=== PATIENT | male | born 1935 | race Caucasian/White ===

== ENCOUNTER 2017-07-09 19:02 | Emergency (ER) | payer MEDICARE ==
[~2017-07-09] VITALS: Ht 170.2 cm; Wt 81.8 kg
[2017-07-09 19:08] VITALS: TEMP 98.7
[2017-07-09 19:36] LABS: BASO % 0.2 % (0.0-2.0); EOS % 0.1 % (0-4.0); GRAN # 8.6 (1.4-6.5); GRAN % 86.5 % (42.2-75.2); HEMATOCRIT 46.7 % (42.0-52.0); HEMOGLOBIN 15.3 g/dl (13.5-18.0); LYMPH # 0.6 (1.2-3.4); LYMPH % 5.5 % (20.0-51.0); MEAN CELL VOLUME 86 fl (80.0-100.0); MEAN CORPUSCULAR HEMOGLOBIN 28 pg (27.0-31.0); MEAN CORPUSCULAR HGB CONC 33 g/dl (33.0-37.0); MEAN PLATELET VOLUME 10.5 fl (7.4-10.4); MONO # 0.7 (0.1-0.6); MONO % 7.4 % (1.7-9.3); PLATELET COUNT 203 K/mm3 (130-400); RED BLOOD COUNT 5.44 M/mm3 (4.20-5.60); REDCELL DISTRIBUTION WIDTH-CV 13.6 % (11.5-14.5)
[2017-07-09 19:43] LABS: PROTHROMBIN TIME 11.6 SECONDS (9.7-12.8)
[2017-07-09 20:01] LABS: ALANINE AMINOTRANSFERASE 34 U/L (21-72); ALBUMIN 3.9 gm/dL (3.5-5.0); ALKALINE PHOSPHATASE 86 U/L (50-136); ANION GAP 16 mmol/L (7-16); AST,SGOT 44 U/L (15-37); BILIRUBIN,TOTAL 1.1 mg/dL (0.0-1.0); BLOOD UREA NITROGEN 26 mg/dL (9-20); CALCIUM 8.5 mg/dL (8.4-10.2); CARBON DIOXIDE 20 mmol/L (22-30); CHLORIDE 105 mmol/L (98-107); CREATININE, serum 1.45 mg/dL (0.66-1.25); GLUCOSE 128 mg/dL (74-106); LIPASE 319 U/L (23-300); POTASSIUM 4.3 mmol/L (3.4-5.0); SODIUM 141 mmol/L (137-145); TOTAL PROTEIN 7.3 gm/dL (6.4-8.2)
[2017-07-09] MEDS ORDERED: PRINIVIL2.5 MG PO (20:12)
[2017-07-09 20:13] LABS: TROPONIN-I < 0.012 ng/mL (0.000-0.034)
[2017-07-09] MEDS ORDERED: ASPIRIN 81M81 MG/TA2 PO (20:13)
[2017-07-09] MEDS ORDERED: LIPITOR 40MG TA40 MG PO (20:13)
[2017-07-09] MEDS ORDERED: LOPRESSOR 225 MG/TAB PO (20:13)
[2017-07-09] MEDS ORDERED: PEPCID 20MG TAB20 MG PO (22:01)
[2017-07-09 22:33] VITALS: BP 131/66; PULSE 77
== END 2017-07-09 22:35 | disposition home or self-care (01) ==
LOC: COL.ER 19:02
PROVIDERS: Emergency Medicine
DX: K29.00 Acute gastritis without bleeding (principal); I10 Essential (primary) hypertension; E78.5 Hyperlipidemia, unspecified; I25.10 Atherosclerotic heart disease of native coronary artery without angina pectoris; Z95.5 Presence of coronary angioplasty implant and graft
CPT/HCPCS: C9113; J2765; J7030